=== PATIENT | female | born 1960 | race American Indian/Alaskan Native ===

== ENCOUNTER 2018-05-13 11:22 | Emergency (ER) | payer MEDICARE ==
[2018-05-13] MEDS ORDERED: ASPIRIN PO ONE (11:54)
[2018-05-13] MEDS ORDERED: TYLENOL #3 PO ONE (12:20)
[2018-05-13] MEDS ORDERED: NITROSTAT SL ONE (12:20)
--- NOTE | 2018-05-13 12:30 | XRay Report ---
AP CHEST: HISTORY: chest pain AP view of the chest demonstrates a normal mediastinal and cardiac contour with clear lungs and normal bony and soft tissue structures. IMPRESSION: Unremarkable AP chest.
[2018-05-13 12:55] LABS: Hematocrit 26.9 % (30.3-42.9); Hemoglobin 8.7 gm/dl (10.1-14.3); INR 0.94 (0.87-1.13); Mean Corpuscular HGB Conc 33 % (30-34); Mean Corpuscular Volume 71 fl (79-97); Red Blood Count 3.81 M/mm3 (3.65-5.03); Red Cell Distribution Width 19.9 % (13.2-15.2)
[2018-05-13 12:57] LABS: BUN/Creatinine Ratio 11; Blood Urea Nitrogen 9 mg/dL (7-17); Calcium 9.1 mg/dL (8.4-10.2); Hemolysis Index 7; Mean Corpuscular Hemoglobin 23 pg (28-32)
[2018-05-13 13:31] LABS: Anisocytosis 2+; Hypochromasia 1+; Poikilocytosis 3+; Total Cells Counted 100
[2018-05-13 13:32] LABS: Ovalocytes 2+; Tear Drop Cells Few
[2018-05-13 13:33] LABS: Platelet Count 66 K/mm3 (140-440); Platelet Estimate Cons
--- NOTE | 2018-05-13 13:36 | Emergency Department Report ---
HPI - General Chief Complaint: Chest Pain Time Seen by Provider: 05/13/18 12:07 - HPI HPI: The patient is a 57-year-old female who presents for evaluation of chest pain. The patient reports constant left-sided sharp in quality chest pain that began suddenly approximately 1-2 hours prior to arrival, currently mild in severity. Exacerbated with movement. The patient denies fever, neck pain, parasthesias, dyspnea, cough, hemoptysis, palpitations, dizziness, syncope, unilateral leg swelling, calf muscle pain. Patient also denies cocaine or other stimulant use , history of DVT or PE, recent immobilization, or history of cancer. ED Past Medical Hx - Past Medical History Previous Medical History?: Yes Hx Hypertension: Yes - Surgical History Past Surgical History?: Yes - Social History Smoking Status: Current Every Day Smoker Substance Use Type: Marijuana ED Review of Systems ROS: Stated complaint: CHEST PAINS Other details as noted in HPI Constitutional: denies: fever ENT: denies: throat or neck pain Respiratory: denies: cough, shortness of breath Cardiovascular: reports chest pain Endocrine: denies unexplained weight loss or gain Gastrointestinal: denies: abdominal pain, nausea Genitourinary: denies: dysuria Musculoskeletal: denies: leg swelling Skin: denies: rash Neurological: denies: headache Hematological/Lymphatic: denies: easy bleeding or easy bruising Psych: denies sadness or hopelessness Physical Exam - Physical Exam Vital Signs: Vital Signs 05/13/18 11:39 Temperature 98.2 F Pulse Rate 89 Respiratory 20 Rate Blood Pressure 140/76 O2 Sat by Pulse 100 Oximetry Physical Exam: General: well-nourished, well-developed, no acute distress Head: Normocephalic, atraumatic Eyes: normal sclera ENT: Mucous membranes are pink and moist Neck: trachea midline, neck supple, No neck stiffness, no cervical adenopathy Respiratory: Breath sounds equal bilaterally, no wheezing, rales, or rhonchi Cardio: S1 and S2 present, no murmurs, rubs, gallops, capillary refill is brisk Abdomen: Normoactive bowel sounds, soft abdomen, no rigidity, no guarding or rebound tenderness Musc: No pitting edema Skin: No rash Neuro: no facial drooping, normal speech Psych: Normal affect ED Course Vital Signs 05/13/18 11:39 Temperature 98.2 F Pulse Rate 89 Respiratory 20 Rate Blood Pressure 140/76 O2 Sat by Pulse 100 Oximetry ED Medical Decision Making - Lab Data Result diagrams: 05/13/18 12:08 05/13/18 12:08 - Medical Decision Making The patient was seen and examined by myself. The patient is placed on a inspector brake lining and continuous pulse ox. On initial evaluation, the patient was found to be in no distress. EKG was negative for findings suggestive of acute cardiac infarct. The patient is given pain medicine. Labs and imaging are obtained. Chest x-ray is negative for pneumothorax, focal consolidation, pulmonary vascular congestion, pleural effusion, or other obvious acute cardiopulmonary disease process. Lab results were non-concerning including levels of 2 sets of troponin, WBC, hemoglobin, hematocrit, electrolytes, renal function. The patient was reevaluated and reported that their symptoms were markedly improved. As the patient has a PAU risk score less than 2, and a well 's score less than 2, the patient is at low risk of ACS or pulmonary emboli etiology of their symptoms. The patient is stable for discharge with outpatient follow-up. The patient is given follow-up and return instructions. The patient expressed understanding and agreed with the plan. The patient is discharged in stable condition. Critical care attestation.: If time is entered above; I have spent that time in minutes in the direct care of this critically ill patient, excluding procedure time. ED Disposition Clinical Impression: Acute chest pain, Orthostatic dizziness Disposition: -01 TO HOME OR SELFCARE Is pt being admited?: No Does the pt Need Aspirin: No Condition: Stable Instructions: Chest Pain (ED) Referrals: PRIMARY CARE, [Primary Care Provider] - 3-5 Days [facility] [Outside] - 3-5 Days Time of Disposition: 13:35 PAU score - Pau Score Age > 65: (0) No Aspirin use within the Past 7 Days: (0) No 3 or more CAD Risk Factors: (0) No 2 or more Angina events in past 24 hrs: (0) No Known CAD with more than 50% Stenosis: (0) No Elevated Cardiac Markers: (0) No ST Deviation Greater than 0.5mm: (0) No PAU Score: 0
[2018-05-13 17:19] VITALS: BP 127/74
== END 2018-05-13 17:30 | disposition home or self-care (01) ==
LOC: ED 11:22
DX: R07.89 Other chest pain (principal); R42 Dizziness and giddiness; I10 Essential (primary) hypertension; F17.200 Nicotine dependence, unspecified, uncomplicated; F12.10 Cannabis abuse, uncomplicated
CPT/HCPCS: 36415; 71045; 80048; 83880; 84484; 85007; 85025; 85610; 93005; 93010; 99284